=== PATIENT | female | born 1980 ===

== ENCOUNTER → 2020-11-08 09:11 | Outpatient (CLI) | payer OTHER, SELFPAY ==
--- NOTE | ~2020-11-08 | MR_ITS ---
EXAMINATION: MR foot LT wo con DATE: 11/08/2020 09:55 INDICATION: Lateral left midfoot and ankle pain. TECHNIQUE: Magnetic resonance imaging (MRI) of the left foot was performed without intravenous contra st. Sequences included sagittal T1-weighted FSE and STIR FSE, long-axis PD-weighted FS FSE and PD-matehw ghted FSE, and short-axis PD-weighted FS FSE and T1-weighted FSE. COMPARISON: None FINDINGS: Bone alignment is normal. There is a transverse intra-articular fracture of base of fifth m etatarsal. Joint spaces are normal. Lisfranc ligament is normal. There are changes of sprain of anter ior talofibular ligament characterized by thickening and increased signal intensity. Calcaneofibular ligament, posterior talofibular ligament, and anterior and posterior tibiofibular ligaments are blue l. There is a partial tear of peroneus brevis tendon at its distal attachment. The musculature is nor mal. IMPRESSION: 1. Transverse intra-articular fracture of base of fifth metatarsal. 2. Partial tear of peroneus brevis tendon at its distal attachment. 3. Changes of lateral ankle sprain. Reviewed, dictated and finalized at location A. [employer]
== END ==
PROVIDERS: Visit Provider Podiatrist Foot & Ankle Surgery
DX: S92.355A Nondisplaced fracture of fifth metatarsal bone, left foot, initial encounter for closed fracture (principal); X58.XXXA Exposure to other specified factors, initial encounter
CPT/HCPCS: 73718